=== PATIENT | female | born 1965 | race Caucasian/White ===

== ENCOUNTER 2018-08-30 07:59 | Emergency (ER) | payer SELFPAY ==
[2018-08-30 08:10] VITALS: BMI 21.2
--- NOTE | 2018-08-30 08:23 | PDOC ---
History of Present Illness <Fabiola Zepeda - Last Filed: 08/30/18 09:27> - General History Source: Patient, Family - History of Present Illness Initial Comments: 08/30/18 08:41 The patient is a 52 year old female with IDDM who presents to the ED s/p seizure. Family @ bedside assists in history. Son states shortly after 7 a.m. he walked into patient's bedroom and found her laying on her side shaking her head and neck and arms and then she rolled onto her back. States symptoms improved after she was given orange juice. H/o 5-6 previous similar episodes, most recently 2-3 days ago before getting ready to travel to [place] from her home in [place]. At that time patient symptoms improved with glucagon. Patient follows with an french weaver in [place], Lantus recently decreased from 30 units to 22 units. No recent dietary changes. Allergy: Erythromycin Surgical: Pilonidal cyst, Plastic surgery As per EMR, patient has no h/o previous evaluations in our ED. <Michelle Zamudio - Last Filed: 08/30/18 10:23> - General Chief Complaint: Seizure Stated Complaint: SEIZURE Time Seen by Provider: 08/30/18 08:23 Past History <Fabiola Zepedawolfgang - Last Filed: 08/30/18 09:27> - Past Medical History COPD: No Diabetes: Yes (type 1) Seizures: Yes - Suicide/Smoking/Psychosocial Hx Smoking History: Never smoked <Michelle Zamudio - Last Filed: 08/30/18 10:23> - Past Medical History Allergies/Adverse Reactions: Allergies Allergy/AdvReac Type Severity Reaction Status Date / Time erythromycin base Allergy Verified 08/30/18 08:06 Home Medications: Ambulatory Orders Insulin (Levemir) 22 units SQ DAILY 08/30/18 Review of Systems - Review of Systems Constitutional: No: Chills, Fever HEENTM: No: Recent change in vision Respiratory: No: Cough, Shortness of Breath Cardiac (ROS): No: Chest Pain, Lightheadedness, Palpitations, Syncope ABD/GI: No: Constipated, Diarrhea, Nausea Neurological: Yes: Seizure. No: Headache, Tremors, Weakness <Michelle Zamudio - Last Filed: 08/30/18 10:23> *Physical Exam - Vital Signs Last Vital Signs Temp Pulse Resp BP Pulse Ox 98.1 F 100 H 18 131/91 100 08/30/18 08:06 08/30/18 08:06 08/30/18 08:06 08/30/18 08:06 08/30/18 08:06 <Fabiola Zepeda - Last Filed: 08/30/18 09:27> - Vital Signs Last Vital Signs Temp Pulse Resp BP Pulse Ox 98.1 F 100 H 18 131/91 100 08/30/18 08:06 08/30/18 08:06 08/30/18 08:06 08/30/18 08:06 08/30/18 08:06 - Physical Exam Comments: 08/30/18 08:44 Awake, verbal HEENT: nasal abrasion, L sided tongue laceration, neck supple, full ROM, no mastoid ecchymosis, no periorbital ecchymosis CV: S1, S2, RRR Respiratory: CLTA B/L Abdomen: soft, non-tender General Appearance: Yes: Nourished, Appropriately Dressed HEENT: positive: Normal Voice, Hearing Grossly Normal, Other (nasal abrasion, L ventral tongue abrasion) Neck: positive: Trachea midline, Supple Respiratory/Chest: positive: Lungs Clear, Normal Breath Sounds Cardiovascular: positive: S1, S2 Gastrointestinal/Abdominal: positive: Normal Bowel Sounds, Soft Extremity: positive: Normal Capillary Refill, Normal Inspection, Normal Range of Motion Integumentary: positive: Normal Color, Cyanotic Neurologic: positive: pbx inspector II-XII NML intact, Alert. negative: Facial Droop <Michelle Zamudio - Last Filed: 08/30/18 10:23> ED Treatment Course - ADDITIONAL ORDERS Additional order review: Laboratory Results 08/30/18 08:04 POC Glucometer 157 08/30/18 08:04 POC Glucometer 157 <Fabiola Zepedawolfgang - Last Filed: 08/30/18 09:27> - ADDITIONAL ORDERS Additional order review: Laboratory Results 08/30/18 08:04 POC Glucometer 157 08/30/18 08:04 POC Glucometer 157 <Michelle Zamudio - Last Filed: 08/30/18 10:23> Medical Decision Making - Medical Decision Making 08/30/18 08:45 52 year old female s/p witnessed seizure. Post-ictal, A&O x3 at presentation Mild tachycardia 08/30/18 08:58 Patient reassessed @ bedside As per family, patient @ baseline. Patient wishes to AMA as she doesn't have insurance, acknowledges risks of incomplete evaluation. The patient is clinically sober, free from distracting injury, appears to have intact insight and judgment and reason and in my opinion has the capacity to make decisions. The patient presents with seizure. I have explained that I am concerned that her seizures may be a result of underlying serious medical condition and risks to her include stroke, loss of limb function, coma and . Patient has verbalized an understanding of my concerns and still wishes to leave; patient is refusing any further care and is leaving against medical advice. <Michelle Zamudio - Last Filed: 08/30/18 10:23> *DC/Admit/Observation/Transfer <Fabiola Zepeda - Last Filed: 08/30/18 09:27> - Discharge Dispostion Decision to Admit order: No <Michelle Zamudio - Last Filed: 08/30/18 10:23> Diagnosis at time of Disposition: Seizure - Discharge Dispostion Disposition: AGAINST MEDICAL ADVICE Condition at time of disposition: Fair - Patient Instructions Printed Discharge Instructions: DI for Seizure Disorder -- Adult, DI for Hypoglycemia Additional Instructions: You are choosing to leave against medical advice without full evaluation of your seizure. Risks of incomplete evaluation include repeat seizure, stroke, loss of limb function, coma, cardiac arrest, severe infection, blood stream infection, dehydration, bleeding, liver failure, myocardial infarction, arrhythmia, stroke , intracranial lesion/bleeding, seizure, respiratory failure, delay in diagnosis and management, loss of current lifestyle, loss of functional status, multiorgan failure, coma, severe disability and . Follow-up with your french weaver and a primary care doctor as soon as possible. Return to the Emergency Department for any new/worsening/concerning symptoms.
--- NOTE | 2018-08-30 09:06 | PDOC ---
Attending Attestation - Resident Resident Name: Michelle Zamudio - ED Attending Attestation I have performed the following: I have examined & evaluated the patient, The case was reviewed & discussed with the resident, I agree w/resident's findings & plan - HPI HPI: 08/30/18 09:22 52 YOF with h/o IDDM on lantus/sliding scale and h/o hypoglycemic seizures, BIB EMS for seizure she woke up this morning, getting up from bed and had episode of witnessed sz, fell off Bed, episode resolved, no head trauma. +tongue biting and nasal abrasion from rug burn family members gave juice/EMS gave glucagon, with subsequent improvement back to baseline now. blood sugar checked >100 at home and by EMS. denies f/c, cp, sob, dizziness, n/v/d. last sz 1 year ago lives in [place] has h/o hypoglycemic seizures, has had lantus adjusted from 30 units to 22 units ; follows with Endo in [place] for that management. ate regular meal yesterday, in usual state of health. - Physicial Exam PE: 08/30/18 09:09 Agree with the resident's HPI and PE as documented in the electronic medical record. NAD, alert, oriented now to person/time/place, EOMI, PERRL, nl conjunctiva, anicteric; tongue lacerations and contusions laterally and anteriorly, neck supple. lungs clear, RRR, abdomen soft nontender. Back nontender. CR x4, no focal neuro deficits. No peripheral edema. normal color for ethnicity, WWP. speech clear, 08/30/18 09:21 - Medical Decision Making 08/30/18 09:09 pt examined at bedside with family members alert and oriented, slowly remembering events most likely based on history this is related to hypoglycemic episode related seizures however, pt does not want to stay for monitoring and workup external survey unremarkable, no signs of trauma except for tongue contusions and nasal abrasion neuro intact, speech clear. no prodromal/infectious sx, no systemic sx. The patient has requested to leave the ED against medical advice. The patient reason(s) for leaving include, but are not limited to, the following: does not wish to stay, lack of insurance and money - despite explaining purpose of ED visitation. I believe this patient is of sound mind and competent to refuse medical care. The patient is responding and asking questions appropriately. The patient is oriented to person, place and time. The patient is not psychotic, delusional, suicidal, homicidal or hallucinating. The patient demonstrates a normal mental capacity to make decisions regarding their healthcare. The patient is clinically sober and does not appear to be under the influence of any illicit drugs at this time. The patient has been advised of the risks, in layman terms, of leaving AMA which include, but are not limited to cardiac arrest, severe infection, blood stream infection, dehydration, bleeding, liver failure, myocardial infarction, arrhythmia, stroke, intracranial lesion/bleeding, seizure , respiratory failure, delay in diagnosis and management, loss of current lifestyle, loss of functional status, multiorgan failure, coma, severe disability and . Alternatives have been offered - the patient remains steadfast in their wish to leave. The patient has been advised that should they change their mind they are welcome to return to this hospital, or any other, at any time. The patient understands that in no way does an AMA discharge mean that I do not want them to have the best medical care available. To this end, I have provided appropriate prescriptions, referrals, and discharge instructions. The patient did sign AMA paperwork. The above discussion was witnessed by another member of staff, RK Lombardo and resident Dr Zamudio instructions for hypoglycemia and seizures provided 08/30/18 09:25 08/30/18 09:27
[2018-08-30 09:37] VITALS: BP 124/75; PULSE 79; TEMP 97.9
== END 2018-08-30 09:02 | disposition left against medical advice (07) ==
LOC: JER 07:59
DX: G40.909 Epilepsy, unspecified, not intractable, without status epilepticus (principal); E11.9 Type 2 diabetes mellitus without complications; Z79.4 Long term (current) use of insulin
CPT/HCPCS: 82962; 99282-25